=== PATIENT | female | born 1995 | race Caucasian/White ===

== ENCOUNTER 2017-08-15 21:22 | Emergency (ER) | payer BC ==
[~2017-08-15] VITALS: Ht 160 cm; Wt 60.4 kg
[2017-08-15 21:27] VITALS: TEMP 36.9; Ht 160 cm; Wt 60.4 kg
[2017-08-15 22:19] LABS: URINE APPEARANCE CLEAR (CLEAR); URINE BILIRUBIN NEG (NEG); URINE COLOR YELLOW; URINE EPITHELIAL CELL AUTO 0-5 /lpf (0-5); URINE NITRITE NEG (NEG); URINE PH 7.5 (4.5-7.5); URINE SPECIFIC GRAVITY 1.012 (1.000-1.030); UROBILINOGEN NEG (NEG); ZZUR CULT IF INDIC CLEAN CATCH YES
[2017-08-15 22:40] LABS: MANUAL MICROSCOPIC REQUIRED? NO; REVIEW REQ? NO
[2017-08-15] MEDS ORDERED: CIPROFLOXACIN 500MG HOME PACK PO ONE (23:00)
[2017-08-15] MEDS ORDERED: PHENAZOPYRIDINE HOME PACK 200 MG VIAL PO ONE (23:00)
[2017-08-15] MEDS ORDERED: BCPILLS PO (23:02)
[2017-08-15] MEDS ORDERED: IBUP-103 PO (23:02)
[2017-08-15] MEDS ORDERED: MISCCAP80 PO (23:02)
[2017-08-15] MEDS ORDERED: CIPR-255 PO (23:07)
[2017-08-15 23:11] VITALS: BP 127/70; PULSE 75; O2SAT 100
--- NOTE | 2017-08-16 06:08 | EMERGENCY ROOM VISIT NOTE ---
ED Visit Note First contact with patient: 21:31 CHIEF COMPLAINT: Frequent and painful urination HISTORY OF PRESENT ILLNESS: This 22 year old white female presents to the emergency department complaining of increased frequency of urination, burning pain with urination, and a feeling of incomplete voiding for the past 5. The patient passes very small volumes of urine with each episode of voiding. The patient does not have abdominal pain. They deny fever and vaginal discharge. She does have some intermittent back pain bilaterally. The patient has not frequent urinary tract infections in the past. Patient feels they are not at risk for STIs. REVIEW OF SYSTEMS: A 6 system review of systems was completed with positives and pertinent negatives listed in the HPI. ALLERGIES: Sulfa MEDICATIONS: control PMH: No chronic medications SOCIAL HISTORY: Lives locally PHYSICAL EXAM: Vital Signs: Reviewed Nurse's notes, vital signs stable. GENERAL : White female, in no acute distress, they do not appear toxic, well-developed, well-nourished. HEART: Regular rate and rhythm without murmur gallop or rub LUNG : Clear to auscultation bilateral ABDOMEN: Positive bowel sounds x 4. The abdomen is soft, mildly tender in the suprapubic area, but no masses or organs are felt. There is no CVA tenderness. The skin is clear. NEURO: Alert and oriented to person place and time. EMERGENCY DEPARTMENT COURSE: Physical exam and history were performed. Nursing notes and EMR were reviewed. The patient has had UTI symptoms for the past several days. She does report some vague back pain, however she does not have CVA tenderness on exam. Her vital signs stable. Urine was collected and is with evidence of infection and hematuria. I will provide her a course of Cipro and Pyridium. She was given discharge or signs of low and otherwise invited back to the ER with any new, worsening, or concerning symptoms. Current/Historical Medications Scheduled Control Pills ( Control Pills), 1 TAB PO DAILY Ciprofloxacin Hcl (Cipro), 500 MG PO BID Ibuprofen Tab (Advil), 400 MG PO PRN UD Probiotic Product (Probiotic), 1 CAP PO DAILY Allergies Coded Allergies: Sulfa Antibiotics (Verified Allergy, Intermediate, Migraine, vomiting, ) Vital Signs Date Time Temp Pulse Resp B/P (MAP) Pulse Ox O2 Delivery O2 Flow Rate FiO2 08/15/17 23:11 75 18 127/70 100 Nasal Cannula 08/15/17 21:27 36.9 78 16 133/84 100 Room Air Laboratory Results Test 08/15/17 21:50 Urine Color YELLOW Urine Appearance CLEAR (CLEAR) Urine pH 7.5 (4.5-7.5) Urine Specific [place] 1.012 (1.000-1.030) Urine Protein NEG (NEG) Urine Glucose (UA) NEG (NEG) Urine Ketones NEG (NEG) Urine Occult Blood 2+ (NEG) Urine Nitrite NEG (NEG) Urine Bilirubin NEG (NEG) Urine Urobilinogen NEG (NEG) Urine Leukocyte Esterase MODERATE (NEG) Urine WBC (Auto) >30 /hpf (0-5) Urine RBC (Auto) >30 /hpf (0-4) Urine Hyaline Casts (Auto) 1-5 /lpf (0-5) Urine Epithelial Cells (Auto) 0-5 /lpf (0-5) Urine Bacteria (Auto) 1+ (NEG) Urine Test NEG (NEG) Medications Administered Medications (Trade) Dose Ordered Sig/Brit Route Start Time Stop Time Status Last Admin Dose Admin Ciprofloxacin (Cipro 500MG Home Pack) 1 homepack UD ONCE PO 08/15/17 23:00 08/15/17 23:01 DC 08/15/17 23:12 1 HOMEPACK Phenazopyridine HCl (Phenazopyridine HCl 200MG Home Pack) 1 homepack UD ONCE PO 08/15/17 23:00 08/15/17 23:01 DC 08/15/17 23:13 1 HOMEPACK Departure Information Impression Primary Impression: Urinary tract infection Dispostion Home / Self-Care Condition GOOD Prescriptions Ciprofloxacin Hcl (CIPRO) 500 Mg Tab 500 MG PO BID for 10 Days, #20 TAB Prov: Louie Duenas PA-C 08/15/17 Forms HOME CARE DOCUMENTATION FORM, IMPORTANT VISIT INFORMATION Patient Instructions My [facility] Additional Instructions You were seen and evaluated today on an emergency basis only. This is not a substitute for, or an effort to provide, complete comprehensive medical care. It is not possible to recognize and treat all injuries or illnesses in a single emergency department visit. For this reason it is recommended that you followup with your primary care physician this week with any ongoing or persisting symptoms. Ciprofloxacin(Cipro) 500mg: Take one pill twice daily for 10 days for your infection. All antibiotics can cause diarrhea. If this occurs and you feel worse or it does not resolve in 1-2 days follow up with your doctor or return to the Emergency Department as this could be signs of serious underlying problems. If you experience any pain in your tendons or any tendon injury return to the ER for re-evaluation. Any medication can cause an allergic reaction, stop the pills immediately and return to the ER for rash, hives, breathing difficulties, or swelling. Take Pyridium 3 times daily as needed. This will change the color of your urine to orange/red. This is normal. You are welcome to return to the emergency department anytime with new, worsening, or concerning symptoms.
== END 2017-08-15 23:17 | disposition home or self-care (01) ==
LOC: C.EDB 21:24
DX: N39.0 Urinary tract infection, site not specified (principal); Z79.3 Long term (current) use of hormonal contraceptives

== ENCOUNTER 2017-10-08 11:09 | Emergency (ER) | payer BC ==
[~2017-10-08] VITALS: Ht 160 cm; Wt 57.0 kg
[~2017-10-08 11:09] MED LIST: BCPILLS PO; CIPR-255 PO; IBUP-103 PO; MISCCAP80 PO
[2017-10-08 11:12] VITALS: BP 118/76; TEMP 36.8; Ht 160 cm; Wt 57.0 kg
--- NOTE | 2017-10-08 11:45 | EMERGENCY ROOM VISIT NOTE ---
History Report prepared by Divya: Laurie Frazier Under the Supervision of: Dr. Breezy Briggs M.D. First contact with patient: 11:14 Chief Complaint: THROAT PAIN/INJURY Stated Complaint: STREP THROAT History of Present Illness The patient is a 22 year old female who presents to the Emergency Room with complaints of sore throat that began yesterday and progressively worsened this morning. She describes it as a lump in her throat and it is painful to swallow. The patient rates her pain as a 7/10 in severity. She denies SOB, fever, cough , chest pain, abdominal pain, rash, headache, back pain, recent trauma or injury , and swelling or pain in legs. She denies any sick contacts. Patient has a history of strep throat. Patient denies chance of and she is currently taking control. Her vaccinations are up-to-date. Source of History: patient Onset: yesterday Position: throat Symptom Intensity: 7/10 Quality: other (sore) Timing: worsening Modifying Factors (Worsening): other (swallowing) Associated Symptoms: No fevers, No headache, No cough, No chest pain, No SOB , No abdominal pain, No back pain, No rash Note: Pt denies recent trauma or injury, and swelling or pain in legs. Review of Systems Old medical records were reviewed. Nurse's notes were reviewed and I agree with. Past Medical & Surgical Medical Problems: (1) Urinary tract infection Family History No pertinent history stated. Social History Smoking Status: Never Smoker Occupation Status: [employer] Current/Historical Medications Scheduled Control Pills ( Control Pills), 1 TAB PO DAILY Probiotic Product (Probiotic), 1 CAP PO DAILY Allergies Coded Allergies: Sulfa Antibiotics (Verified Allergy, Intermediate, Migraine, vomiting, ) Physical Exam Vital Signs Date Time Temp Pulse Resp B/P (MAP) Pulse Ox O2 Delivery O2 Flow Rate FiO2 10/08/17 11:59 79 18 99 10/08/17 11:12 36.8 76 16 118/76 98 Room Air Physical Exam General: Non-ill appearing young female in no acute distress. HEENT: Normal cephalic atraumatic. Pupils are equal round and reactive to light. Extraocular movements are intact. Oropharynx bilateral tonsillary exudates, no abscess, no Bear's angina. No swelling of the mouth lips or tongue. Neck: Supple with a midline trachea. No meningeal signs or stiffness, no JVD or bruits. No Stridor. Mild lymphadenopathy. Chest: Clear to auscultation bilaterally. No wheezes or rhonchi. No increased work of breathing. Heart: regular rate and rhythm. Abdomen: Soft nontender, nondistended without rebound guarding or rigidity. Extremities: No cyanosis clubbing or edema. No calf tenderness or assymetry Spine/Back. Non tender to palpation. No CVA tenderness Skin: Good turgor without rashes. Neurologic exam: Cranial nerves two through 12 are intact. Motor and sensation are intact and symmetrical throughout. Medical Decision & Procedures Procedure 1120: I performed a rapid strep test. ED Course 1114: Past medical records reviewed. The patient was evaluated in room D5, and a complete history and physical examination were performed. 1125: I reassessed the patient at this time. She is feeling better and resting comfortably. I discussed the results and treatment plan with the patient. I answered all pertaining questions that she had. She expressed understanding and verbalized agreement. The patient will be discharged home. Medical Decision Differentials include but are not limited to: Streptococcal pharyngitis, viral illness, and abscess. This patient comes in as described above. She's had a sore throat. On exam, she does have bilateral tonsillar exudates but no evidence to suggest an abscess. The floor of mouth is soft and there is nothing to suggest a Bear's angina. She is swallowing her secretions and speaking and breathing without difficulty. Rapid strep was negative. A backup culture is pending. She should rest and drink plenty of fluids. Use ibuprofen for pain. Return if: Worsening of symptoms, not tolerating fluids, fever or chills, any new problems or concerns. She was happy with plan and discharged home. Medication Reconcilliation Current Medication List: was personally reviewed by me Impression Primary Impression: Pharyngitis Scribe Attestation The scribe's documentation has been prepared under my direction and personally reviewed by me in its entirety. I confirm that the note above accurately reflects all work, treatment, procedures, and medical decision making performed by me. Departure Information Dispostion Home / Self-Care Referrals No Doctor, Assigned (PCP) Forms HOME CARE DOCUMENTATION FORM, IMPORTANT VISIT INFORMATION, WORK / SCHOOL INSTRUCTIONS Patient Instructions My [facility] Additional Instructions Rest Drink plenty of fluids. Use ibuprofen 400 mg every 6 hours, take with food Use cool liquids Return if: Worsening of symptoms, shortness of breath, any new problems or concerns
[2017-10-08 11:59] VITALS: PULSE 79; O2SAT 99
== END 2017-10-08 12:00 | disposition home or self-care (01) ==
LOC: C.EDB 11:11 → C.EDD 12:00
DX: J02.9 Acute pharyngitis, unspecified (principal); Z79.3 Long term (current) use of hormonal contraceptives